=== PATIENT | female | born 1995 | race African-American/Black ===

== ENCOUNTER 2017-05-30 11:04 | Emergency (ER) | payer MEDICAID, SELFPAY ==
[2017-05-30 11:05] VITALS: BP 134/77; PULSE 94; RESP 16; TEMP 37.2; O2SAT 100; BMI 35.3
--- NOTE | 2017-05-30 11:49 | ED.DCSUM_ITS ---
- ER Visit Summary Date of Service: 05/30/17 Chief Complaint: [] sore Throat for a few days cough History of Present Illness: The patient is a 21 F [] has number medical history she complains of a sore throat for the last few days and a cough minimal rhinorrhea she has had no exposures to anyone with strep throat but she is concerned for strep throat wants to be tested she also brought her 10 m old child to be tested for strep as well she has had no vomiting no fever she is able to swallow Physical Examination: [] Asencio she is afebrile her vital signs are within normal range she is in no distress her HEENT exam generally unremarkable her throat is minimally red there is no exudate uvula is midline she speaking in breathing and talking and phonating and swallowing normally her neck is very supple no adenopathy lungs clear heart tones normal abdomen soft is awake moving all 4 extremities skin is normal Test Results: [] Emergency Department Course and Treatment: [] strep sent return positive the patient was started on amoxicillin follow-up for doctor return for change in symptoms Treatment Plan: [] Disposition: [] Stable home Impression: [] URI strep pharyngitis This note was generated with [employer] dictation software. It may contain incorrect words, spelling, and punctuation that were not noted in review of the chart prior to signing ED Disposition - Plan for ED Patient: Chief Complaint: Sore Throat Referrals: Kimberly Tinajero NP-C [Primary Care Provider] -
--- NOTE | 2017-05-30 12:48 | DCINST.ED_ITS ---
ED Disposition - Plan for ED Patient: Chief Complaint: Sore Throat Instructions: ED Strep Pharyngitis Conf Prescriptions: Naproxen [Naprosyn] 500 mg PO BID PRN #20 tab Amoxicillin 500 mg PO TID #30 tab Referrals: Kimberly Tinajero, DEVELOPMENT REPRESENTATIVE-C [Primary Care Provider] -
[2017-05-30] MEDS: Acetaminophen 325 MG Tablet 650 MG PO (12:58)
== END 2017-05-30 13:01 | disposition home or self-care (01) ==
PROVIDERS: Emergency Provider Emergency Medicine; Family Provider Nurse Practitioner; PCP Nurse Practitioner
DX: J06.9 Acute upper respiratory infection, unspecified (principal); J02.0 Streptococcal pharyngitis
CPT/HCPCS: 87880; 99281